=== PATIENT | female | born 1980 | race Caucasian/White ===

== ENCOUNTER → 2022-08-20 | Outpatient (CLI) | payer OTHER, SELFPAY | END | disposition home or self-care (01) | PROVIDERS: Referring Provider Surgery; Visit Provider Surgery | DX: L02.416 Cutaneous abscess of left lower limb (principal) | CPT/HCPCS: 87070; 87075; 87205 ==

== ENCOUNTER 2022-11-04 09:08 | Day surgery (SDC) | payer OTHER, SELFPAY ==
[2022-11-04] VITALS (9 sets, daily range): BP systolic 96–110; BP diastolic 62–77; PULSE 57–74; RESP 16; TEMP 36–36.4; O2SAT 97–100; BMI 29.2
--- NOTE | 2022-11-04 09:20 | PCM.HP.STD ---
HPI - General General Date of Admission: 11/04/22 HPI Narrative LAST MODI, is a 42 F who presents for excision of left thigh subcutaneous mass likely previous cyst that was inflamed. Patient did previously have an I&D as well as on antibiotics which patient states and draining had improved as well as the induration in this area. PFSH Medical History Asthma Back pain Gastric reflux Migraine headache Smoker Home Medications albuterol sulfate 90 mcg/actuation breath activated powder inhaler 2 inh inhalation Q6H PRN ALLERGIES 08/20/22 [History Last Taken Unknown] mewgmezain-hhtqforwicorq-dfhsifsd 50 mg-325 mg-40 mg capsule 1 cap PO Q6H PRN MIGRAINES 08/20/22 [History Last Taken Unknown] eletriptan 20 mg tablet See Rx Instructions PO .COMPLEX 08/20/22 [History Last Taken Unknown] montelukast 10 mg tablet (Singulair) 10 mg PO PRN PRN ALLERGIES 08/20/22 [History Last Taken Unknown] valacyclovir 1 gram tablet (Valtrex) 1,000 mg PO DAILY 08/20/22 [History Last Taken Unknown] calcium 250 mg tablet 250 mg PO DAILY 10/28/22 [History Last Taken Unknown] cholecalciferol (vitamin D3) 25 mcg (1,000 unit) tablet (Vitamin D3) 25 mcg PO DAILY 10/28/22 [History Last Taken Unknown] magnesium 250 mg tablet 250 mg PO DAILY 10/28/22 [History Last Taken Unknown] multivitamin 1 tab PO DAILY 10/28/22 [History Last Taken Unknown] omeprazole magnesium 20 mg tablet,delayed release (Prilosec OTC) 20 mg PO QHS 10/28/22 [History Last Taken Unknown] Allergy/AdvReac Type Severity Reaction Status Date / Time azithromycin Allergy PT UNSURE Verified 11/04/22 09:55 [From Zithromax Z-Martin] OF REACTION Iodinated Contrast Media Allergy PT UNSURE Verified 11/04/22 09:55 OF REACTION Surgical History (Updated 10/28/22 @ 11:37 by Valery Singh) Hx of LASIK Social History Smoking Status: Current every day smoker tobacco type: cigarettes Vital Signs Vital Signs Vital Signs: Weight Weight: 179 lb Physical Exam Const alert, oriented x3 and no apparent distress HEENT normocephalic and head/scalp atraumatic Resp normal respiratory effort Cardio regular rate GI soft to palpation and non-tender; Negative for non-distended Palpation: Negative for guarding Extremity no clubbing, cyanosis or edema Extremity Narrative: Left medial/superior thigh/groin crease: Area of induration improved small open wound no active drainage. No erythema. Neuro CN's II-XII intact bilaterally Psych mental status grossly normal Assessment & Plan Assessment/Plan (1) Abscess of left thigh: PLAN: Status post I&D and antibiotics, currently infection appears to be resolved plan for excision. PLAN: Plan Discussed with patient excision of left thigh subcutaneous mass at the superior medial aspect/groin crease. Risks include but not limited to infection, bleeding, and anesthesia. Patient had no further questions this time. Trice Gutierrez M.D. Pager: [phone] [facility] [address] [place] [address], [address] [place] [address] Office: [phone]
[2022-11-04 09:56] LABS: Internal QC Validated? YES +Cl - CLEAR BKGD; Pregnancy, Urine Negative Negative
[2022-11-04] MEDS: Lactated Ringers 1,000 ML 15 ML IV (10:05)
--- NOTE | 2022-11-04 11:30 | MASS_PTH ---
PATIENT: LAST MODI LOC: [facility] – [place] U#:[id number] AGE/SX: 42/F ROOM: RE11/04/[address]: Dr. Trice Gutierrez MD : [id number] BED: DIS: 11/04/2022 SPEC #: [id number] RECD: 11/04/22 14:49 STATUS: RASHAD REQ #: [id number] CLOTILDE: 11/04/22 11:[address]: Trice Gutierrez DEPT: SURGICAL PATHOLOGY RECD BY: Otilia Suresh ENTERED: 11/05/22 12:21 SP TYPE: Mass OTHR DR: BRUNA Mcbride Tissues: Thigh, NOS Procedures: Surgery Specimen Level III HEADER OPERATION: Excision wound upper thigh PRE-OP DIAGNOSIS: Abscess left thigh TISSUE SUBMITTED: Left superior thigh subcutaneous mass/cyst MICROSCOPIC DIAGNOSIS Left superior thigh mass, biopsy: Epidermal inclusion cyst. AM:erica 11/06/2022 MICROSCOPIC DESCRIPTION Slides are reviewed. GROSS DESCRIPTION Received in fixative is one container labeled with the patient's name and designated left superior thigh lesion. The specimen consists of an elongated fragment of gates skin with attached gates-yellow soft tissue measuring 2 x 0.5 cm and a depth of excision measuring 0.6 cm. The specimen is inked, serially sectioned and totally submitted in one cassette. / AM:erica 11/05/2022 TC:5 CPT: 46464
[2022-11-04] MEDS: Cefazolin 2 GM in 0.9% Normal Saline 100 ML IV (11:53)
[2022-11-04] MEDS: Bupiv/Epi 0.5% Mpf 30 ML Vial (12:18)
--- NOTE | 2022-11-04 12:33 | PCM.OPRPT ---
Report of Operation Date of Procedure: 11/04/22 Pre-Operative Diagnosis: Left superior thigh subcutaneous mass/previous abscess Post-Operative Diagnosis: Same Surgery/Procedure Performed:: Excision of superior thigh subcutaneous mass Description of Surgical Findings:: Specimen consistent with cyst likely was previously infected. Surgeon: Trice Gutierrez Type of Anesthesia: Local MAC Anesthesiologist: Chris Stewart Special Medications: Ancef 2 g IV x1 Specimen's removed: Left superior thigh subcutaneous mass/cyst Estimated Blood Loss (mL): < 10 cc Description of Procedure: Patient was brought into the operating placed supine on the operating table. Timeout was completed verifying correct patient, procedure, site, positioning, special equipment prior began procedure. MAC anesthesia was induced. Patient's left superior thigh was prepped draped in usual sterile fashion with Betadine. An elliptical incision was made around the lesion after local anesthesia of 0.5% Marcaine with epinephrine. 15 blade scalpel was used to excise the lesion. Hemostasis was achieved with pressure. Lesion was sent to pathology. 3-0 Vicryl interrupted sutures used to close the incision. Dermabond was used for the skin. A pressure dressing with 4 x 4's and tape were also placed. Patient tolerated procedure well and was taken to the postanesthesia care unit in stable condition. Complications None
--- NOTE | 2022-11-04 13:09 | DCINST_ITS ---
Discharge Instructions Diet Discharge Diet: No restrictions Activity Discharge Activity: May Not Drive (If taking narcotics) and May Shower May resume sexual activity in: 2 weeks (We will discuss further at follow-up appointment) Additional Activity Instructions:: No soaking in any body of water/hot tub/pool/bathtub Dressing / Incision Call your doctor if your incision/area has: Continuous Slow Oozing, Sudden Increased Bleeding, Increased Pain/ Swelling, Increased Redness and Foul Smelling Discharge Call your doctor if you observe: Fever of 101 or Higher Additional Dressing/Incision Instructions:: Dermabond was applied to incision will start to peel in about 5 days this is normal. To help prevent seroma placed pressure dressing with some 4 x 4's at this area for the first 2 to 3 days. Follow Up Care Please Follow Up With: Trice Gutierrez MD When: Call the office for a follow-up appointment in 2 weeks. Test Results: Test results from this visit will be discussed in further detail at your follow- up appointment, if applicable. Discharge Plan Admission Attending Provider: Trice Gutierrez Primary Care Provider: Alanis Doss Discharge Orders/Prescriptions Prescriptions: New oxycodone-acetaminophen 5-325 mg tablet 1 tab PO Q6H PRN (Reason: pain) 2 Days Qty: 3 0RF Continued valacyclovir [Valtrex] 1 gram tablet 1,000 mg PO DAILY montelukast [Singulair] 10 mg tablet 10 mg PO PRN PRN (Reason: ALLERGIES) xxiogsczyi-hpzkdtpowzrqn-nrft 50-325-40 mg capsule 1 cap PO Q6H PRN (Reason: MIGRAINES) albuterol sulfate 90 mcg/actuation aerosol powdr breath activated 2 inh inhalation Q6H PRN (Reason: ALLERGIES) eletriptan 20 mg tablet See Rx Instructions PO .COMPLEX Rx Instructions: take 1 tab at onset of headache; if no relief may repeat 1 tab after at least 2 hrs; max = 4 tabs/24 hr PO multivitamin Tablet 1 tab PO DAILY calcium 250 mg Tablet 250 mg PO DAILY magnesium 250 mg Tablet 250 mg PO DAILY omeprazole magnesium [Prilosec OTC] 20 mg Tablet,Delayed Release (Dr/Ec) 20 mg PO QHS cholecalciferol (vitamin D3) [Vitamin D3] 25 mcg (1,000 unit) Tablet 25 mcg PO DAILY Referrals / Follow Up: Alanis Doss PA [Primary Care Provider] - Disposition Disposition (needs filled in before D/C Order can be placed): Home, Self Care
== END 2022-11-04 13:39 | disposition home or self-care (01) ==
LOC: SDC 09:13 → AC 09:14
PROVIDERS: Anesthesiology; Referring Provider Surgery; Visit Provider Surgery
PROC: (CPT 27327; principal; 2022-11-04 11:20)
DX: L72.0 Epidermal cyst (principal); J45.909 Unspecified asthma, uncomplicated; K21.9 Gastro-esophageal reflux disease without esophagitis; F17.210 Nicotine dependence, cigarettes, uncomplicated; Z79.899 Other long term (current) drug therapy
CPT/HCPCS: 27327; 00400; 81025; 88304; 88305; J7120; J2405

== ENCOUNTER → 2025-10-10 | Outpatient (CLI) | payer OTHER, SELFPAY ==
--- NOTE | 2025-10-10 13:48 | NEURO ---
NCS and/or EMG Patient Report Ordering Doctor: Rony Otero DATE OF SERVICE: 10/10/25 Sierra presents with complaints of numbness and tingling bilaterally both hands. Electrodiagnostic findings: Median motor nerve demonstrates normal distal latency, amplitude and conduction velocity bilaterally. Ulnar motor response within normal limits bilaterally. Normal median and ulnar F?waves. Sensory responses are within normal limits. Needle EMG testing was performed in the upper limbs. All muscles tested showed no evidence of denervation with normal motor unit action potentials. Electrodiagnostic impression: This is a normal electrodiagnostic study of the upper limbs. There is no electrodiagnostic evidence for peripheral neuropathy, including carpal tunnel or cubital tunnel syndrome. There is no electrodiagnostic evidence for cervical radiculopathy Multi Select Codes Neurology Neurology Interp Codes: 57497-41 Musc test done w/n test comp (interp) (2) and 31772-41 Nrv cndj test 13/> studies (interp)
== END | disposition home or self-care (01) ==
PROVIDERS: PCP Physician Assistant; Referring Provider Physician Assistant; Visit Provider Physician Assistant
DX: R20.0 Anesthesia of skin (principal); R20.2 Paresthesia of skin
CPT/HCPCS: 95886; 95913